=== PATIENT | male | born 1990 | race Caucasian/White ===

== ENCOUNTER 2017-08-26 15:05 | Outpatient (CLI) | payer BC, OTHER ==
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
== END 2017-08-26 15:06 | disposition home or self-care (01) ==
LOC: SCSMRI 15:05
PROVIDERS: ATTEND Psychiatry & Neurology Neurology
DX: S16.1XXA Strain of muscle, fascia and tendon at neck level, initial encounter (principal)
CPT/HCPCS: 72141